=== PATIENT | male | born 1980 | race Caucasian/White ===

== ENCOUNTER 2022-10-28 17:40 | Emergency (ER) | payer OTHER, SELFPAY ==
--- NOTE | ~2022-10-28 | XR_ITS ---
EXAMINATION: XR chest 1V portable DATE: 10/28/2022 20:25 INDICATION: Left arm pain and headache TECHNIQUE: frontal view of the chest was obtained. COMPARISON: None FINDINGS: The lungs are clear with no focal airspace opacities, pulmonary edema, pleural effusion or pneumothor ax. The cardiomediastinal silhouette is normal. Visualized bones and soft tissues are unremarkable. IMPRESSION: 1. No acute cardiopulmonary disease. Reviewed, dictated and finalized at location A. [facility] [employer]
[2022-10-28 18:00] VITALS: BP 133/75; PULSE 71; RESP 18; TEMP 36.4; O2SAT 99
--- NOTE | 2022-10-28 19:52 | ECG_ITS ---
Measurements Intervals [place] Rate: 49 P: 65 OK: 206 QRS: 52 QRSD: 115 T: 57 QT: 418 QTc: 379 Interpretive Statements SINUS BRADYCARDIA INCOMPLETE RIGHT BUNDLE BRANCH BLOCK [90+ ms QRS DURATION, TERMINAL R IN V1/V2, 40+ ms S IN I/aVL/V4/V5/V6] NO PREVIOUS ECG AVAILABLE FOR COMPARISON Electronically Signed On 10-28-2022 20:05:48 BAT PERSON by Lisbet Rosales M.D.
[2022-10-28 20:30] VITALS: BP 164/114; PULSE 65; RESP 16; O2SAT 100
[2022-10-28 20:32] VITALS: BP 155/105; PULSE 65; RESP 14; O2SAT 99
--- NOTE | 2022-10-28 20:32 | PC.NURSE ---
Pt reports BRIGGS that started yesterday then reports pain in left jaw and down left arm that started last night. BRIGGS and jaw pain continues today
--- NOTE | 2022-10-28 20:41 | PC.NURSE ---
Pt reports headache that radiates into his left jaw that started yesterday. Today he started noticing pain to his left shoulder and left arm. He went to the chiropractor who checked his blood pressure. His blood pressure was high so she instructed him to go to the ER. He denies hx of HTN. Denies chest pain, dizziness, or SOB. Skin warm and dry. Respiratory rate regular and non-labored.
[2022-10-28 20:43] LABS: Basophils Absolute Auto 0.1 K/mm3 (0.0-0.1); Basophils Percent Auto 0.6 % (0.2-1.2); Eosinophils Absolute Auto 0.2 K/mm3 (0-0.3); Hemoglobin 14.7 g/dL (14.0-18.0); Immature Granulocyte Absolute 0.02 K/mm3 (0.00-0.031); Immature Granulocyte Percent A 0.2 % (0-0.5); Lymphocytes Absolute Auto 3.05 K/mm3 (0.9-3.2); Lymphocytes Percent Auto 37.7 % (18.3-44.2); Mean Corpuscular HGB Conc 34.2 g/dl (32-36); Mean Corpuscular Hemoglobin 30.2 pg (26-34); Mean Corpuscular Volume 88.3 fl (80-100); Mean Platelet Volume 9.4 fl (7.4-10.4); Monocytes Absolute Auto 0.6 K/mm3 (0.1-0.6); Monocytes Percent Auto 7.9 % (2.6-8.5); Neutrophils Absolute Auto 4.2 K/mm3 (1.3-6.7); Neutrophils Percent Auto 51.6 % (45.5-73.1); Platelet Count Result 301 k/mm3 (150-375); Red Blood Count 4.87 M/mm3 (4.6-6.20); Red Cell Distribution Width 12.5 % (11.5-14.5); White Blood Count 8.1 K/mm3 (4.5-10.0)
[2022-10-28 20:47] VITALS: BP 144/87; PULSE 61; RESP 14; O2SAT 100
--- NOTE | 2022-10-28 20:50 | ED.GENADULT ---
HPI - General Adult General Chief complaint: Headache Stated complaint: BRIGGS, jaw pain, htn Time Seen by Provider: 10/28/22 20:04 Source: patient Mode of arrival: ambulatory Limitations: no limitations History of Present Illness HPI narrative: 42-year-old male with no significant medical history presents today with concerns for headache that started yesterday with pain to the left jaw radiating down to the left bicep. Patient states currently the only pain that he has right now is a minimal headache rating 1-2. Patient states his headache started yesterday to the left temporal area. Around 1430 he took 4 Tylenol without any relief. He did have a birthday alliance party for his son last night. He noticed pain yesterday to his left bicep but currently there is none. Patient states while eating supper last night his jaw pain was so severe that he could not even eat the pizza due to the pain when he would bite down. Pain today is better. States he was able to eat some noodles without issue. There is minimal pain when clenching his teeth together right now. He denies any dental issues. He denies chest pain, shortness of breath. Patient did notice an increase in back and neck pain today made appointment with a chiropractor. The chiropractor encouraged patient to be seen in the ER today. Related Data Allergies Allergy/AdvReac Type Severity Reaction Status Date / Time No Known Allergies Allergy Verified 10/28/22 21:17 Review of Systems Review of Systems: CONSTITUTIONAL: Denies fever, chills, or sweats. EYES: Denies visual changes, redness, or discharge. ENT: Left tooth pain. Denies rhinorrhea, congestion, sore throat, or otalgia. CARDIOVASCULAR: Denies chest pain, palpitations, or edema. RESPIRATORY: Denies cough or dyspnea. GASTROINTESTINAL: Denies abdominal pain, nausea, vomiting, or diarrhea. MUSCULOSKELETAL: Chronic neck pain and back pain. Denies back pain, joint pain, or myalgia. NEUROLOGIC: Headache to the left confucianism. Patient denies numbness, dizziness, or weakness. PSYCHIATRIC: Denies anxiety or depression. Exam Narrative: GENERAL: Well-appearing, well-nourished, and in no acute distress. HEAD: Normocephalic, atraumatic. EYES: PERRLA and EOMI. ENT: Nares clear, no rhinorrhea or epistaxis. Mucous membranes moist. Oropharynx without tonsillar hypertrophy exudate or other lesions. NECK: Supple. No adenopathy or masses. No carotid bruits or JVD no cervical spinal tenderness. CHEST: Clear to auscultation. No respiratory distress. No wheezes rales or rhonchi HEART: Regular rate and rhythm. No murmur heard. Normal peripheral pulses. EXTREMITIES: Normal range of motion. No edema. Tenderness to left scapular area. Muscle spasms noted. SKIN: Warm, dry, no rash. NEURO: No focal deficits. Alert and oriented x3. PSYCH: Normal mood and affect. Course Vital Signs Vital signs: Vital Signs Temperature 97.6 F 10/28/22 18:00 Pulse Rate 71 10/28/22 18:00 Respiratory Rate 18 10/28/22 18:00 Blood Pressure 133/75 10/28/22 18:00 Pulse Oximetry 99 10/28/22 18:00 Temperature 97.6 F 10/28/22 18:00 Pulse Rate 60 10/28/22 22:03 Respiratory Rate 16 10/28/22 22:03 Blood Pressure 124/82 10/28/22 22:03 Pulse Oximetry 99 10/28/22 22:03 Medical Decision Making MDM Narrative Medical decision making narrative: 42-year-old male HPI as noted. Work-up to include CBC, CMP, chest x-ray, troponin, EKG, COVID flu. Patient denies chest pain but had left jaw pain and left arm pain. Low suspicion for WA but will do cardiac work-up to rule out WA. CBC CMP without concerning findings EKG as noted below. Troponin negative and with pain starting yesterday will not repeat. Chest x-ray no concerning findings. Influenza and COVID-negative. Suspect headache with possible sinusitis. And left back pain. Differential Diagnosis Differential Diagnosis: WA, hypertension, headache, jaw pain, muscle spasms, Medical Records M
[2022-10-28 20:51] LABS: Influenza A QL RT-PCR Negative (Negative); Influenza B QL RT-PCR Negative (Negative); SARS-CoV-2 RNA PCR Negative
[2022-10-28 20:52] LABS: Alanine Aminotransferase 28 U/L (6-50); Albumin Level 4.8 g/dL (3.5-5.1); Alkaline Phosphatase 92 U/L (38-126); Anion Gap 9 mmol/L (8-16); Aspartate Amino Transferase 30 U/L (17-59); Bilirubin,Total 0.4 mg/dL (0.2-1.3); Blood Urea Nitrogen 19 mg/dL (9-20); Calcium 9.1 mg/dL (8.4-10.2); Carbon Dioxide 24 mmol/L (22-30); Chloride 105 mmol/L (98-107); Estimated CRCL calculation 85 ml/min; Estimated Glomerular Filt Rate > 60; Glucose 88 mg/dL (65-110); Potassium 3.8 mmol/L (3.4-5.0); Sodium 138 mmol/L (137-145)
[2022-10-28 21:05] LABS: Troponin I < 0.012 ng/mL (0.000-0.034)
[2022-10-28] MEDS: KETOROLAC 30 MG/ML VIAL (*BKC) IV PUSH (21:17)
[2022-10-28] MEDS: ONDANSETRON INJ 4 MG/2 ML VIAL IV PUSH (21:17)
[2022-10-28] MEDS: SODIUM CHLORIDE 0.9% IV 1,000 ML 999 ML IV CONT (21:17)
[2022-10-28 21:31] VITALS: BP 132/86; PULSE 61; RESP 18; O2SAT 98
[2022-10-28 22:03] VITALS: BP 124/82; PULSE 60; RESP 16; O2SAT 99
== END 2022-10-28 22:23 | disposition home or self-care (01) ==
PROVIDERS: Family Medicine; Emergency Provider Nurse Practitioner Family
DX: R51.9 Headache, unspecified (principal); J32.9 Chronic sinusitis, unspecified; K08.89 Other specified disorders of teeth and supporting structures; M54.12 Radiculopathy, cervical region; M79.602 Pain in left arm; Z20.822 Contact with and (suspected) exposure to COVID-19; I45.10 Unspecified right bundle-branch block; R00.1 Bradycardia, unspecified
CPT/HCPCS: 36415; 71045; 80053; 84484; 85025; 87636; 93005; 96361; 96374; 96375; 99284; J1885; J2405; J7030